=== PATIENT | female | born 2000 | race Two or more races ===

== ENCOUNTER 2023-11-13 12:00 | Inpatient (IN) | payer OTHER ==
[2023-11-13 12:04] VITALS: BMI 24.1
[2023-11-13] MEDS ORDERED: FAMOTIDINE 20 MG/50 ML IVPB 20 MG/50 ML MG IVPB ONE (13:27)
[2023-11-13] MEDS ORDERED: ONDANSETRON 4 MG/2 ML VIAL ONE (13:27)
[2023-11-13 13:50] LABS: BASO % 0.2 % (0-2.0); EOS % 2.2 % (0-4.5); HEMATOCRIT 33.2 % (32.4-45.2); HEMOGLOBIN 10.5 GM/dL (10.7-15.3); LYMPH % 14.7 % (8-40); MCH 21.7 pg (25.7-33.7); MCHC 31.8 g/dl (32.0-36.0); MEAN CELL VOLUME 68.5 fl (80-96); MEAN PLT VOLUME 7.2 fl (7.5-11.1); MONO % 13.7 % (3.8-10.2); NEUT % 69.2 % (42.8-82.8); PLATELET COUNT 439 10^3/uL (134-434); RBC 4.85 M/mm3 (3.60-5.2); RDW 17.5 % (11.6-15.6); WHITE BLOOD COUNT 12.3 K/mm3 (4.0-10.0)
[2023-11-13] MEDS: SODIUM CHLORIDE 0.9% 500 ML INFUS.BAG IV ONE ×2 (13:51→17:22)
[2023-11-13] MEDS: ONDANSETRON 4 MG/2 ML VIAL IVPUSH ONE (13:51)
[2023-11-13] MEDS: FAMOTIDINE 20 MG/50 ML IVPB 20 MG/50 ML MG IVPB ONE (13:51)
[2023-11-13 14:03] LABS: INR 1.36 (0.83-1.09); PROTHROMBIN TIME (PATIENT) 15.2 SEC (9.7-13.0)
[2023-11-13 14:06] LABS: ACTIVATED PTT 28.7 SECONDS (25.2-36.5)
[2023-11-13 14:08] LABS: POTASSIUM 3.9 mmol/L (3.5-5.1)
[2023-11-13 14:09] LABS: CALCIUM 8.5 mg/dL (8.5-10.1)
[2023-11-13 14:10] LABS: ALBUMIN 2.8 g/dl (3.4-5.0)
[2023-11-13 14:13] LABS: CREATININE 0.6 mg/dL (0.55-1.3)
[2023-11-13 14:14] LABS: BILIRUBIN,TOTAL 0.3 mg/dL (0.2-1)
[2023-11-13 14:40] LABS: ANISOCYTOSIS 2+; MACROCYTOSIS 0; OVALOCYTE 1+
[2023-11-13 15:04] LABS: PH,URINE 5.5 (5.0-8.0); URINE APPEARANCE Clear; URINE BILIRUBIN 1+ (NEGATIVE); URINE COLOR Yellow; URINE GLUCOSE (UA) Negative (NEGATIVE); URINE KETONE 3+ (NEGATIVE); URINE LEUK ESTERASE Negative (NEGATIVE); URINE NITRITE Negative (NEGATIVE); URINE PROTEIN 2+ (NEGATIVE); URINE UROBILINOGEN 0.2 mg/dL (0.2-1.0)
[2023-11-13 15:13] LABS: EPI CELLS 27 /uL (0-25.1); HYALINE CASTS 4 /uL (0-3.1); URINE BACTERIA 45 /uL (0-1359); URINE RBC 65 /uL (0-23.9); URINE WBC 21 /uL (0-25.8)
[2023-11-13] MEDS: SODIUM CHLORIDE 1,000 ML IV SCH (22:57)
[2023-11-14] MEDS: VANCOMYCIN ORAL SOLUTION 125 MG/2.5 ML PO SCH (00:30)
[2023-11-14] MEDS: ACETAMINOPHEN 325 MG TABLET (FP) PO PRN (00:32)
[2023-11-14 08:16] LABS: INR 1.3 (0.83-1.09); PROTHROMBIN TIME (PATIENT) 14.8 SEC (9.7-13.0)
[2023-11-14 08:17] LABS: HEMATOCRIT 27.2 % (32.4-45.2); HEMOGLOBIN 8.6 GM/dL (10.7-15.3); MCH 21.9 pg (25.7-33.7); MCHC 31.6 g/dl (32.0-36.0); MEAN CELL VOLUME 69.5 fl (80-96); MEAN PLT VOLUME 7.6 fl (7.5-11.1); PLATELET COUNT 331 10^3/uL (134-434); RBC 3.92 M/mm3 (3.60-5.2); RDW 17.3 % (11.6-15.6); WHITE BLOOD COUNT 11.7 K/mm3 (4.0-10.0)
[2023-11-14 08:27] LABS: CHLORIDE 109 mmol/L (98-107); POTASSIUM 3.9 mmol/L (3.5-5.1); SODIUM 139 mmol/L (136-145)
[2023-11-14 08:32] LABS: CALCIUM 7.7 mg/dL (8.5-10.1)
[2023-11-14 08:33] LABS: ANION GAP 5 mmol/L (4-13); CO2 26 mmol/L (21-32); GLUCOSE,RANDOM 97 mg/dL (74-106); MAGNESIUM 1.9 mg/dL (1.8-2.4)
[2023-11-14 08:36] LABS: CREATININE 0.5 mg/dL (0.55-1.3); SGOT/AST 7 U/L (15-37); SGPT/ALT 11 U/L (13-61)
[2023-11-14 08:39] LABS: ALK PHOS 55 U/L (45-117); TOT PROT 5.5 g/dl (6.4-8.2)
[2023-11-14 08:42] LABS: ALBUMIN 2.1 g/dl (3.4-5.0); BLOOD UREA NITROGEN 2.1 mg/dL (7-18)
[2023-11-14 09:08] LABS: BILIRUBIN,TOTAL 0.3 mg/dL (0.2-1)
[2023-11-14 09:34] LABS: ERYTHROCYTE SEDIMENTATION RATE 73 mm/hr (0-20)
[2023-11-14] MEDS: ENOXAPARIN NA (PORCINE) 40 MG/0.4 ML DISP.SYRIN SQ SCH (15:01)
[2023-11-15 12:29] LABS: BASO % 0.2 % (0-2.0); EOS % 2.9 % (0-4.5); HEMATOCRIT 27.3 % (32.4-45.2); HEMOGLOBIN 8.8 GM/dL (10.7-15.3); MCH 21.9 pg (25.7-33.7); MCHC 32.1 g/dl (32.0-36.0); MEAN CELL VOLUME 68.4 fl (80-96); MEAN PLT VOLUME 7.1 fl (7.5-11.1); MONO % 13.5 % (3.8-10.2); NEUT % 63.4 % (42.8-82.8); PLATELET COUNT 369 10^3/uL (134-434); RDW 17.2 % (11.6-15.6); WHITE BLOOD COUNT 10.7 K/mm3 (4.0-10.0)
[2023-11-15 12:56] LABS: CHLORIDE 108 mmol/L (98-107); POTASSIUM 3.8 mmol/L (3.5-5.1); SODIUM 140 mmol/L (136-145)
[2023-11-15 13:00] LABS: CALCIUM 8.4 mg/dL (8.5-10.1)
[2023-11-15 13:01] LABS: ANION GAP 6 mmol/L (4-13); CO2 26 mmol/L (21-32); GLUCOSE,RANDOM 93 mg/dL (74-106)
[2023-11-15 13:04] LABS: CREATININE 0.4 mg/dL (0.55-1.3)
[2023-11-15 13:06] LABS: IRON SERUM 9 ug/dL (50-175); TOTAL IRON BINDING CAPACITY 225 ug/dL (250-450)
[2023-11-15 13:17] LABS: BLOOD UREA NITROGEN 2.1 mg/dL (7-18)
[2023-11-15] MEDS: CEFTRIAXONE 1 GM in DEXTROSE 5%-WATER - 50 ML IVPB SCH (14:37)
[2023-11-15 15:05] LABS: HIV INTERPRETATION NEGATIVE (NEGATIVE)
[2023-11-15] MEDS: IRON SUCROSE INJECTION 200 MG in SODIUM CHLORIDE 100 ML IVPB ONE (15:30)
[2023-11-15] MEDS: methylPREDNISolone NA SUCC 40 MG/1 ML VIAL IVPUSH SCH (18:38)
[2023-11-15] MEDS: MESALAMINE 4 GM/60 ML ENEMA RC SCH (23:05)
[2023-11-16 08:27] LABS: HEMATOCRIT 27.3 % (32.4-45.2); HEMOGLOBIN 8.7 GM/dL (10.7-15.3); MCH 21.8 pg (25.7-33.7); MCHC 31.8 g/dl (32.0-36.0); MEAN CELL VOLUME 68.5 fl (80-96); MEAN PLT VOLUME 7.3 fl (7.5-11.1); PLATELET COUNT 395 10^3/uL (134-434); RBC 3.99 M/mm3 (3.60-5.2); RDW 17.2 % (11.6-15.6); WHITE BLOOD COUNT 14.4 K/mm3 (4.0-10.0)
[2023-11-16 08:42] LABS: POTASSIUM 4.5 mmol/L (3.5-5.1)
[2023-11-16 08:45] LABS: CALCIUM 8.5 mg/dL (8.5-10.1)
[2023-11-16 08:46] LABS: ALBUMIN 2.2 g/dl (3.4-5.0); BLOOD UREA NITROGEN 3.5 mg/dL (7-18); MAGNESIUM 2.2 mg/dL (1.8-2.4)
[2023-11-16 08:49] LABS: CREATININE 0.4 mg/dL (0.55-1.3); PHOSPHOROUS 3.9 mg/dL (2.5-4.9)
[2023-11-16 08:50] LABS: TOT PROT 6.1 g/dl (6.4-8.2)
[2023-11-16 08:51] LABS: BILIRUBIN,TOTAL 0.2 mg/dL (0.2-1)
[2023-11-16] MEDS: CALCIUM 250MG/VIT-D 125 UNITS 1 COMBO TABLET PO SCH (09:26)
[2023-11-16] MEDS: MESALAMINE 800 MG TABLET.DR PO SCH (09:26)
[2023-11-16] MEDS: IRON SUCROSE INJECTION 200 MG in SODIUM CHLORIDE 100 ML IVPB ONE (14:50)
[2023-11-17 08:37] LABS: POTASSIUM 4.4 mmol/L (3.5-5.1)
[2023-11-17 08:49] LABS: BILIRUBIN,TOTAL 0.2 mg/dL (0.2-1); BLOOD UREA NITROGEN 7.4 mg/dL (7-18); TOT PROT 6.2 g/dl (6.4-8.2)
[2023-11-17 08:50] LABS: ALBUMIN 2.3 g/dl (3.4-5.0)
[2023-11-17 08:51] LABS: CREATININE 0.5 mg/dL (0.55-1.3)
[2023-11-17 08:53] LABS: BASO % 0.1 % (0-2.0); CALCIUM 8.5 mg/dL (8.5-10.1); EOS % 0.1 % (0-4.5); HEMOGLOBIN 8.5 GM/dL (10.7-15.3); LYMPH % 12.9 % (8-40); MCH 21.8 pg (25.7-33.7); MCHC 31.6 g/dl (32.0-36.0); MEAN CELL VOLUME 69.1 fl (80-96); MEAN PLT VOLUME 7.6 fl (7.5-11.1); MONO % 13.3 % (3.8-10.2); NEUT % 73.6 % (42.8-82.8); PLATELET COUNT 419 10^3/uL (134-434); RBC 3.91 M/mm3 (3.60-5.2); RDW 17.5 % (11.6-15.6); WHITE BLOOD COUNT 11.8 K/mm3 (4.0-10.0)
[2023-11-17 10:21] LABS: ANISOCYTOSIS 1+; MACROCYTOSIS 0
[2023-11-18] MEDS: SODIUM CHLORIDE 500 ML IV STA (07:47)
[2023-11-18 09:20] LABS: POTASSIUM 4.3 mmol/L (3.5-5.1)
[2023-11-18 09:22] LABS: HEMATOCRIT 27.8 % (32.4-45.2); HEMOGLOBIN 8.8 GM/dL (10.7-15.3); MCH 21.8 pg (25.7-33.7); MCHC 31.7 g/dl (32.0-36.0); MEAN CELL VOLUME 68.8 fl (80-96); MEAN PLT VOLUME 7.5 fl (7.5-11.1); PLATELET COUNT 438 10^3/uL (134-434); RBC 4.04 M/mm3 (3.60-5.2); RDW 17.3 % (11.6-15.6); WHITE BLOOD COUNT 13.1 K/mm3 (4.0-10.0)
[2023-11-18 09:28] LABS: ALBUMIN 2.5 g/dl (3.4-5.0); BLOOD UREA NITROGEN 10.1 mg/dL (7-18); CALCIUM 8.6 mg/dL (8.5-10.1)
[2023-11-18 09:29] LABS: MAGNESIUM 2.2 mg/dL (1.8-2.4)
[2023-11-18 09:32] LABS: CREATININE 0.5 mg/dL (0.55-1.3); PHOSPHOROUS 3.5 mg/dL (2.5-4.9)
[2023-11-18 09:33] LABS: BILIRUBIN,TOTAL 0.2 mg/dL (0.2-1); TOT PROT 6.5 g/dl (6.4-8.2)
[2023-11-18] MEDS: IRON SUCROSE INJECTION 200 MG in SODIUM CHLORIDE 100 ML IVPB ONE (15:07)
[2023-11-19 08:32] LABS: HEMATOCRIT 29.5 % (32.4-45.2); HEMOGLOBIN 9.2 GM/dL (10.7-15.3); MCH 21.8 pg (25.7-33.7); MCHC 31.2 g/dl (32.0-36.0); MEAN CELL VOLUME 69.9 fl (80-96); MEAN PLT VOLUME 7.7 fl (7.5-11.1); PLATELET COUNT 452 10^3/uL (134-434); RBC 4.22 M/mm3 (3.60-5.2); RDW 17.3 % (11.6-15.6); WHITE BLOOD COUNT 16.4 K/mm3 (4.0-10.0)
[2023-11-19 08:33] LABS: POTASSIUM 4.3 mmol/L (3.5-5.1)
[2023-11-19 08:36] LABS: CALCIUM 8.6 mg/dL (8.5-10.1)
[2023-11-19 08:37] LABS: ALBUMIN 2.6 g/dl (3.4-5.0); BLOOD UREA NITROGEN 9.8 mg/dL (7-18); MAGNESIUM 2.2 mg/dL (1.8-2.4)
[2023-11-19 08:40] LABS: CREATININE 0.6 mg/dL (0.55-1.3); PHOSPHOROUS 3.7 mg/dL (2.5-4.9)
[2023-11-19 08:42] LABS: BILIRUBIN,TOTAL 0.4 mg/dL (0.2-1); TOT PROT 6.5 g/dl (6.4-8.2)
[2023-11-19 15:19] VITALS: RESP 18
[2023-11-20 08:58] LABS: HEMATOCRIT 31.3 % (32.4-45.2); HEMOGLOBIN 9.7 GM/dL (10.7-15.3); MCH 21.7 pg (25.7-33.7); MCHC 30.9 g/dl (32.0-36.0); MEAN CELL VOLUME 70.3 fl (80-96); MEAN PLT VOLUME 7.3 fl (7.5-11.1); PLATELET COUNT 522 10^3/uL (134-434); RBC 4.46 M/mm3 (3.60-5.2); RDW 17.5 % (11.6-15.6); WHITE BLOOD COUNT 21.8 K/mm3 (4.0-10.0)
[2023-11-20 09:16] LABS: POTASSIUM 3.4 mmol/L (3.5-5.1)
[2023-11-20 09:20] LABS: BLOOD UREA NITROGEN 11.9 mg/dL (7-18); CALCIUM 8.8 mg/dL (8.5-10.1)
[2023-11-20 09:21] LABS: ALBUMIN 2.8 g/dl (3.4-5.0)
[2023-11-20 09:24] LABS: CREATININE 0.7 mg/dL (0.55-1.3)
[2023-11-20 09:25] LABS: BILIRUBIN,TOTAL 0.3 mg/dL (0.2-1); TOT PROT 6.6 g/dl (6.4-8.2)
[2023-11-20 10:46] VITALS: BP 110/65; PULSE 108; TEMP 98
[2023-11-20] MEDS: predniSONE 20 MG TABLET (UD) PO SCH (10:48)
== END 2023-11-20 13:54 | disposition home or self-care (01) | DRG 386 ==
LOC: JER 12:00 → JERBED 20:20 → J5S 23:19
PROVIDERS: ADMIT Internal Medicine; ATTEND Internal Medicine
PROC: 0DBL8ZX Excision of Transverse Colon, Via Natural or Artificial Opening Endoscopic, Diagnostic (ICD-10-PCS; 2023-11-15)
PROC: 0DBN8ZX Excision of Sigmoid Colon, Via Natural or Artificial Opening Endoscopic, Diagnostic (ICD-10-PCS; 2023-11-15)
PROC: 0DBP8ZX Excision of Rectum, Via Natural or Artificial Opening Endoscopic, Diagnostic (ICD-10-PCS; 2023-11-15)
PROC: 0DBM8ZX Excision of Descending Colon, Via Natural or Artificial Opening Endoscopic, Diagnostic (ICD-10-PCS; principal; 2023-11-15 08:45)
DX: K51.90 Ulcerative colitis, unspecified, without complications (principal); K92.1 Melena; R65.10 Systemic inflammatory response syndrome (SIRS) of non-infectious origin without acute organ dysfunction; R31.9 Hematuria, unspecified; D50.9 Iron deficiency anemia, unspecified; R31.29 Other microscopic hematuria; N83.292 Other ovarian cyst, left side; J45.909 Unspecified asthma, uncomplicated; D63.8 Anemia in other chronic diseases classified elsewhere; D75.839 Thrombocytosis, unspecified; K64.8 Other hemorrhoids
CPT/HCPCS: 36415; 74177-TC; 76830-TC; 76856-TC; 80048; 80053; 81003; 82272; 82542; 82728; 83540; 83550; 83690; 83735; 83993; 84100; 84703; 85025; 85027; 85610; 85651; 85730; 86140; 86480; 86682; 86704; 86708; 86803; 87045; 87046; 87086; 87186; 87209; 87324; 87328; 87329; 87340; 87389; 87449; 87517; 88305-TC; 93005; 93010; 99285-25; J1756; Q9967